=== PATIENT | female | born 1990 | race Caucasian/White ===

== ENCOUNTER 2018-07-12 16:53 | Outpatient (REF) | payer MEDICAID, SELFPAY ==
[2018-07-16 14:42] LABS: Chlamydia Result Negative; GC Result Negative; Specimen Description URINE
== END 2018-07-12 17:13 ==
LOC: LBN 16:53
PROVIDERS: PCP Nurse Practitioner Family; Visit Provider Nurse Practitioner Women's Health
DX: Z11.3 Encounter for screening for infections with a predominantly sexual mode of transmission (principal)
CPT/HCPCS: 87491; 87591

== ENCOUNTER 2020-11-16 11:54 | Outpatient (REF) | payer MEDICAID, SELFPAY ==
--- NOTE | 2020-11-16 11:10 | PAPFT_PTH ---
PATIENT: Sravanthi Alexander LOC: [facility] U#:[id number] AGE/SX: 30/F ROOM: RE11/16/[address]: Cass Guillaume : 1990 BED: DIS: 11/16/2020 SPEC #: [id number] RECD: 11/16/20 14:09 STATUS: MADAI RESkye #: [id number] DELGADO: 11/16/20 11:[address]: Cass Guillaume DEPT: [facility] Cytology RECD BY: Anum Knight Tissues: 1 - CX/ENDOCX FOR PAP SMEARS Procedures: PAP THIN PREP/UVM Screening Comments: [id number]
== END 2020-11-16 11:55 | disposition home or self-care (01) ==
LOC: LBN 11:54
PROVIDERS: Visit Provider Obstetrics & Gynecology Gynecology
DX: Z12.4 Encounter for screening for malignant neoplasm of cervix (principal)
CPT/HCPCS: 88142

== ENCOUNTER 2021-06-08 01:21 | Outpatient (CLI) | payer MEDICAID, SELFPAY ==
--- NOTE | 2021-06-08 06:45 | DI.RAD_ITS ---
Exam(s) RF HYSTEROSALPINGOGRAM EXAM: RF HYSTEROSALPINGOGRAM CLINICAL HISTORY: assess tubal patency,INFERTILITY, Z31.9 TECHNIQUE: 2D and realtime digital imaging was performed. CONTRAST MATERIAL: Refer to procedure report. COMPARISON: No exams were available for comparison FINDINGS: Fluoroscopy was provided for Dr. Guillaume during the performance of a hysterosalpingogram. Please r efer to the procedure report for complete details. Contrast is seen spilling into the peritoneal cav ity from both fallopian tubes. IMPRESSION: Unremarkable hysterosalpingogram. Ka,r=3.87 mGy
[2021-06-08] MEDS: Omnipaque 350 MG/ML 50 ML BTL 10 ML IJ (10:34)
--- NOTE | 2021-06-15 21:28 | W.PROCNOTE ---
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 She has used OPK and timed intercourse. Lab studies were normal: no evidence of decreased ovarian function. Procedure Description: After written and verbal consent was obtained the pt was placed in the dorsal supine position on the radiology table in [facility]. A pillow was placed beneath her coccyx to elevate her hips and a sterile speculum was inserted into the vagina. The cervix was cleansed with Betadine and through it a HSG catheter was inserted into the uterine cavity. A balloon attatched to the tip of the HSG catheter was inflated with Normal Saline and the speculum withdrawn. Under direct Fluoroscopy the contrast material was inserted into the uterus and there was documented spillage of the contrast material from both fallopian tubes. The uterine cavity and both fallopian tubes were noted to be normal with no filling defects. At the completion of the procedure the HSG catheter was deflated and the device removed. All other instruments were removed from the vagina. She tolerated the procedure well. She was assisted with getting off of the table and ambulating to the toilet. The normal findings were discussed with the pt. Will f/u with pt and her spouse after his semen analysis results are available.
== END 2021-06-08 01:41 ==
PROVIDERS: Visit Provider Obstetrics & Gynecology Gynecology
DX: Z31.49 Encounter for other procreative investigation and testing (principal)
CPT/HCPCS: 58340; 74740; Q9967

== ENCOUNTER 2022-08-30 15:39 | Outpatient (REF) | payer MEDICAID, SELFPAY ==
[2022-08-30 15:56] LABS: Anion Gap 8.7 mmol/L (3-11); BUN 9 mg/dL (7-18); CO2 25.3 mmol/L (21.0-32.0); CREATININE 0.9 mg/dL (0.55-1.02); Calcium 9.3 mg/dL (8.5-10.1); Calculated LDL 110 mg/dL (<100); Chloride 107 mmol/L (98-107); Cholesterol 168 mg/dL (<200); Glucose 85 mg/dL (74-106); HDL Cholesterol 52 mg/dL (40-60); Potassium 4.1 mmol/L (3.5-5.1); Sodium 141 mmol/L (136-145); TSH 1.01 uIU/mL (0.36-3.74); Triglyceride 34 mg/dL (<150)
[2022-08-30 16:13] LABS: FREE T4 0.84 ng/dL (0.76-1.46)
[2022-08-31 18:11] LABS: Thyroperoxidase Antibody <28 U/mL (<=60)
[2022-09-01 18:35] LABS: Thyrotropin Receptor Ab <1.10 IU/L
== END 2022-08-30 15:40 | disposition home or self-care (01) ==
LOC: NCHCN 15:39
PROVIDERS: Visit Provider Nurse Practitioner Family
DX: Z00.00 Encounter for general adult medical examination without abnormal findings (principal); Z13.220 Encounter for screening for lipoid disorders; E04.9 Nontoxic goiter, unspecified
CPT/HCPCS: 80048; 80061; 84235; 84439; 84443; 86376

== ENCOUNTER 2022-11-11 15:18 | Outpatient (REF) | payer MEDICAID, SELFPAY ==
[2022-11-12 13:24] LABS: Chlamydia Result Negative (Negative); GC Result Negative (Negative)
[2022-11-12 14:30] LABS: Bacterial Vaginosis (BV) Positive (Negative); Candida glabrata Negative (Negative); Candida species group Negative (Negative); Trichomonas vaginalis Negative (Negative)
== END 2022-11-11 15:19 | disposition home or self-care (01) ==
LOC: NCHCN 15:18
PROVIDERS: Visit Provider Family Medicine
DX: N76.0 Acute vaginitis (principal); Z11.3 Encounter for screening for infections with a predominantly sexual mode of transmission
CPT/HCPCS: 81513; 87481; 87491; 87591; 87661; 87480; 87510; 87660

== ENCOUNTER → 2023-11-03 01:02 | Outpatient (CLI) | payer SELFPAY ==
--- NOTE | 2023-11-03 | DI.US_ITS ---
Exam(s) MG MAMMO DIAGNOSTIC BI US BREAST LT LIMITED EXAM: MG MAMMO DIAGNOSTIC BI CLINICAL HISTORY: N64.4,N63.21 Left breast pain,Mass Upper outer quadrant. COMPARISON: US US BREAST LT LIMITED from 11/03/2023 TECHNIQUE: Craniocaudal and mediolateral oblique Full Field Digital Mammography views of both breast s with Computer Aided Diagnosis followed by Tomosynthesis and left breast ultrasound. FINDINGS: Mammography/Tomosynthesis: Masses/Architectural Distortion: Circumscribed nodule noted in the subareolar region of the left [address]. Microcalcifications: No suspicious pleomorphic-type are seen. Scattered bilateral benign calcificat ions. Skin Thickening/Nipple Retraction: None. Left breast US: Echotexture: Normal appearance of the glandular tissue. Shadowing: No suspicious foci. Cyst: Multiple small cysts. 9 x 5 x 11 millimeter cyst in the 12 o'clock position 2 cm from the nipp le. This corresponds to the mammographic abnormality. 9 x 4 x 8 millimeter cyst in the 2 o'clock po sition 4 cm from the nipple. 10 x 5 x 9 millimeters cyst in the 3 o'clock position, 1 cm from the ni pple. Solid lesions: None seen. Ductal dilation: None. IMPRESSION: 1. No evidence of malignancy is noted. 2. Unless there is more urgent need, follow-up screening mammography is recommended, as per [employer] guidelines. BI-RADS Category 2 - Benign Findings Breast Density - Category C - Heterogeneously dense Breast density category C or D implies that the patient has dense breast tissue. Dense breast tissue is very common and is not abnormal but dense breast tissue can make it harder to find cancer on a ma mmogram. Also, dense breast tissue may increase their breast cancer risk. This information about the result of the mammogram report was provided to the patient to raise their awareness. Use this report when you speak with the patient about their risks for breast cancer, which includes their family hist ory. At that time, you may recommend for more screening tests (Ultrasound or MRI) as they might be us eful based on their risk. A negative radiographic report should not delay biopsy if a dominant or clinically suspicious mass is present. Up to ten percent of cancers are not identified on mammography. A negative report may reinforce clinical impression. Adenosis and dense breasts may obscure an underlying neoplasm. False positive reports average 6 to 10%. Patient will receive a letter notifying them of these results.
== END ==
PROVIDERS: Visit Provider Advanced Practice Midwife
DX: Z12.31 Encounter for screening mammogram for malignant neoplasm of breast (principal); N63.21 Unspecified lump in the left breast, upper outer quadrant
CPT/HCPCS: 76642; 77062; 77066; G0279

== ENCOUNTER 2024-08-25 20:59 | Emergency (ER) | payer SELFPAY ==
[2024-08-25 21:03] VITALS: BP 145/95; PULSE 115; RESP 20; TEMP 37.1; O2SAT 99
[2024-08-25 21:06] VITALS: BP 145/95; PULSE 115; RESP 20; TEMP 37.1; O2SAT 99
--- NOTE | 2024-08-25 21:28 | ED.GENADUL_ITS ---
Discharge Plan Disposition Patient Disposition: Home Condition: Good Discharge Details Clinical Impression: Influenza A Primary Care Provider: None,None ED Provider: Anastacia Catherine Home Meds and New Rx's Prescriptions: No Action norethindrone-e.estradiol-iron [Roxie Fe 07/15 (28)] 1 mg-20 mcg (21)/75 mg (7) tablet 1 tab PO DAILY Patient Comments: TAKE ONE TABLET BY MOUTH EVERY DAY Discharge Instructions Instructions: Flu Additional Instructions: You are positive for Flu A. Please stay well hydrated, drinking plenty of fluids throughout the day. You may use ibuprofen 600 mg every 8 hours and tylenol 650 mg every 8 hours as needed for fever /chills or body aches. Get plenty of rest. Practice good handwashing and wear a mask in public if you are coughing to avoid spreading illness to others. Return to emergency care if you develop difficulty breathing, chest pains, worsening of cough or fever after initial improvement, or if you are very worried and need to be rechecked again immediately. HPI General Date/Time Provider Initiated Documentation: 08/25/24 21:18 . HPI Narrative: Sravanthi is a 34year old female who presents to the emergency department today for evaluation of viral symptoms. She reports symptoms started 5 days ago, has had intermittent fevers up to 102, headache, congestion, ear pressure, sore throat, cough, chest discomfort due to coughing since onset. Today started vomiting. Denies abdominal pain, denies any chest pain, shortness of breathing other than associated with not being able to breathe through her nose, abdominal pain, change in bowel or bladder function. She has had multiple ill contacts. Denies significant past medical history; denies history of immunocompromise, lung disease, heart disease, diabetes, or other chronic conditions. Physical exam reassuring. Sravanthi is alert and oriented, no acute distress. Moist mucous membranes. Clear fluids. Easy work of breathing, lung sounds clear bilaterally. Normal heart sounds. Abdomen is soft, nondistended, nonten jermaine to palpation. TMs pearly gregorio, translucent. History and presentation consistent with viral illness. No red flags c/w [place], dehydration, or electrolyte imbalance based on vomiting starting today and good fluid intake. No red flags concerning for pneumonia or other acute bacterial infection secondary to viral illness. I independently interpreted the following tests: Flu A+, COVID and RSV negative. While in the emergency department, Sravanthi received Zofran for nausea and ibuprofen for body aches/fever. Sravanthi is outside the window for antiviral therapy. Reviewed discharge instructions with patient, including symptomatic management and red flags indicating need for return to emergency care Related Data Home Medications ?Medication ?Instructions ?Recorded ?Confirmed norethindrone 1 mg-ethinyl 1 tab PO DAILY 08/25/24 08/25/24 estradiol 20 mcg (21)-iron 75 mg (7) tablet (Roxie Fe 07/15 (28)) Allergies Allergy/AdvReac Type Severity Reaction Status Date / Time diphenhydramine HCl (From AdvReac Mild SICK TO Unverified 08/25/24 21:05 Benadryl) STOMACH General Stated Complaint: RespSymp ALBERT: 3 Review of Systems Narrative: See HPI Exam Const General: cooperative, healthy appearing, comfortable, no acute distress, well developed and well groomed Nutritional Appearance: average body habitus and well nourished Orientation: alert and oriented x3 HENMT Head: normal to inspection Ears: hearing grossly normal bilaterally, external ears normal and TM's normal bilaterally General nose exam: external nose normal Mouth: oral mucosae normal, oropharynx normal and moist mucous membranes Neck Neck: normal visual inspection Resp Effort & Inspection: normal respiratory effort and able to speak in complete sentences Auscultation: clear to auscultation bilaterally Cardio Rate: regular rate Rhythm: regular rhythm GI Inspection: normal to inspection Palpation: soft, not firm, no guarding, not rigid and nontender Skin General skin exam: no rashes or lesions noted Trauma: no lacerations or abrasions Neuro General: patient alert, patient oriented x3 and tone normal Course Vital Signs Vital signs: Vital Signs Temperature 37.1 C 08/25/24 21:03 Pulse 115 H 08/25/24 21:03 Respiratory Rate 20 08/25/24 21:03 Blood Pressure 145/95 H 08/25/24 21:03 Pulse Oximetry 99 08/25/24 21:03 Temperature 37.1 C 08/25/24 21:06 Temperature Source Oral 08/25/24 21:06 Pulse 115 H 08/25/24 21:06 Respiratory Rate 20 08/25/24 21:06 Respiratory Effort Normal, Non-Labored 08/25/24 21:06 Respiratory Depth Normal 08/25/24 21:06 Blood Pressure 145/95 H 08/25/24 21:06 Pulse Oximetry 99 08/25/24 21:06 Oxygen Delivery Method Room Air 08/25/24 21:06 Oxygen Flow Rate 0 08/25/24 21:06 Medical Decision Making Quality:SDOH Health Related Social Needs: No Data to Display PFSH All Active Problems (Updated 08/25/24 @ 22:19 by Anastacia Jo) Influenza A (Acute) Nexplanon insertion (Acute) 11/2022. Medical History (Updated 08/25/24 @ 22:19 by Anastacia Jo) Irregular menstrual cycle Family History Mother No problems noted. Father No problems noted. Social History (Updated 12/16/22 @ 16:51 by Cass Guillaume MD) Smoking/Tobacco Use Status: Never Smoking risk assessment performed?: Yes Alcohol Intake: never Drug use: Never Substance use type: does not use Household members: other Details: [facility] Housing: apartment Number of Children: 1 Education Level: college Details: working towards [employer]. Do you feel safe at home: Yes Do you feel safe in your relationship?: Yes Female Reproductive History Menstrual control method: implanted History History 4 Para 1 Hx # Term Pregnancies Multiple births Hx # Pregnancies Ectopic pregnancies AB induced Hx Number of Living Children AB spontaneous
[2024-08-25] MEDS: Ondansetron O.D.T. 4 MG TABEF PO (21:37)
[2024-08-25] MEDS: Ibuprofen 600 MG TAB PO (21:37)
[2024-08-25 21:45] VITALS: BP 111/66; PULSE 98; RESP 18; O2SAT 98
[2024-08-25 22:13] LABS: COVID-19 PCR Negative (Negative); Influenza A PCR Positive (Negative); Influenza B PCR Negative (Negative); RSV PCR Negative (Negative); Source Nasopharynx
== END 2024-08-25 22:25 | disposition home or self-care (01) ==
PROVIDERS: Emergency Provider Nurse Practitioner Family
DX: J10.1 Influenza due to other identified influenza virus with other respiratory manifestations (principal); R11.0 Nausea
CPT/HCPCS: 87637; 99283

== ENCOUNTER 2024-09-01 11:36 | Emergency (ER) | payer SELFPAY ==
[2024-09-01 11:38] VITALS: PULSE 75; RESP 16; O2SAT 98
[2024-09-01 11:41] VITALS: PULSE 75; RESP 16; TEMP 36.8; O2SAT 98
--- NOTE | 2024-09-01 12:13 | ED.GENADUL_ITS ---
Discharge Plan Disposition Patient Disposition: Home Condition: Stable Discharge Details Clinical Impression: Sinusitis Primary Care Provider: None,None ED Provider: Donna Bustillos Home Meds and New Rx's Prescriptions: New amoxicillin-pot clavulanate 875-125 mg tablet 1 tab PO BID 7 Days Qty: 14 0RF No Action norethindrone-e.estradiol-iron [Roxie Fe 07/15 (28)] 1 mg-20 mcg (21)/75 mg (7) tablet 1 tab PO DAILY Patient Comments: TAKE ONE TABLET BY MOUTH EVERY DAY Discharge Instructions Instructions: Sinusitis, Adult ED Additional Instructions: You were seen in the emergency department today for evaluation of bilateral ear pain, sinus pressure, and stuffy nose after influenza A, concerning for a sinus infection. As you have had symptoms for 2 to 3 weeks it is reasonable to treat this with antibiotics. I have provided you with a prescription for Augmentin, please take all of this antibiotic until it is gone, even if you start to feel better. I have also provided you with a referral to establish with a primary care provider, and you need to call them to schedule an appointment for reevaluation. Thank you for allowing us to be part of your care. Discharge Data Discharge Date/Time-TO BE ENTERED AT DEPARTURE: 09/01/24 12:24 HPI General Mode of arrival: ambulatory . Date/Time Provider Initiated Documentation: 09/01/24 12:02 . Limitations to Documentation: no limitations . Information obtained by: patient and family . HPI Narrative: HPI: This is a 34-year-old female patient presenting for evaluation of bilateral ear pain and sinus pressure. The patient reports that she was sick with influenza a but has been sick for 2 to 3 weeks, with ongoing nasal congestion, thick green mucus, sinus pain, and a few days ago developed bilateral ear pain. She reports that this is exacerbated whenever she blows her nose, has been using [id number] Tylenol and ibuprofen for management of symptoms, states that she has not been running a measured fever but has felt warm and flushed for the last few days. She denies shortness of breath, cough, has been maintaining her hydration without nausea or vomiting. Exam: Gen: Awake and alert, in no apparent distress HEENT: Non-icteric sclera, no conjunctival injection, bilateral TMs are clear without bulging, purulence, or effusions. Posterior pharynx without erythema, exudate, or swelling. I do note copious green mucus in the bilateral naris Neck: Supple Lungs: No apparent respiratory distress, normal respiratory effort. Lung sounds clear and equal bilaterally without wheezes, rhonchi, rales CV: Appears well perfused, heart with regular rate and rhythm, strong distal pulses Abdomen: Non-distended MSK: Moves 4 extremities without apparent limitation in ROM Skin: Visualized skin without rashes, cyanosis. Neuro: Normal Gait, no obvious focal deficits or facial asymmetry. Speaks in full, clear sentences. Psych: Appropriate for situation. MDM: This is a 34-year-old female patient presenting for evaluation of sinus pressure and bilateral ear pain. Differential includes but is not limited to sinusitis, considered viral upper respiratory infection, no evidence on my exam for otitis media, mastoiditis, or pneumonia. The patient is maintaining her oral intake and I have a lower concern for dehydration, metabolic or electrolyte derangement, she is afebrile now and not hypoxic. No wheezing to suggest reactive airway disease exacerbation. ED Course: Eye exam is most concerning for sinusitis, given the extended duration of symptoms (2 to 3 weeks) that is reasonable to treat with antibiotics given her ongoing symptoms and subjective fevers. We will provide her with a course of Augmentin, and I referred her to establish with a primary care provider for reassessment. At this time, the patient has had a full medical evaluation and is safe for dis charge to home. They are hemodynamically stable, ambulatory, and tolerating PO. They are understanding of the follow-up plan and return precautions. They left our facility without incident. Donna Bustillos MD Related Data Home Medications ?Medication ?Instructions ?Recorded ?Confirmed norethindrone 1 mg-ethinyl 1 tab PO DAILY 08/25/24 09/01/24 estradiol 20 mcg (21)-iron 75 mg (7) tablet (Roxie Fe 07/15 (28)) amoxicillin 875 mg-potassium 1 tab PO BID 7 days #14 tabs 09/01/24 clavulanate 125 mg tablet Previous Rx's ?Medication ?Instructions ?Recorded amoxicillin 875 mg-potassium 1 tab PO BID 7 days #14 tabs 09/01/24 clavulanate 125 mg tablet Allergies Allergy/AdvReac Type Severity Reaction Status Date / Time diphenhydramine HCl (From AdvReac Mild SICK TO Unverified 09/01/24 11:42 Benadryl) STOMACH General Stated Complaint: EarProblem ALBERT: 4 Course Vital Signs Vital signs: Vital Signs Pulse 75 09/01/24 11:38 Respiratory Rate 16 09/01/24 11:38 Pulse Oximetry 98 09/01/24 11:38 Temperature 36.8 C 09/01/24 11:41 Temperature Source Oral 09/01/24 11:41 Pulse 75 09/01/24 11:41 Respiratory Rate 16 09/01/24 11:41 Pulse Oximetry 98 09/01/24 11:41 Oxygen Delivery Method Room Air 09/01/24 11:41 Oxygen Flow Rate 0 09/01/24 11:41 Pain Level 6 09/01/24 11:41 Medical Decision Making Quality:SDOH Health Related Social Needs: No Data to Display PFSH All Active Problems (Updated 09/01/24 @ 12:13 by Donna Bustillos MD) Sinusitis (Acute) Influenza A (Acute) Nexplanon insertion (Acute) 11/2022. Medical History (Updated 09/01/24 @ 12:13 by Donna Bustillos MD) Irregular menstrual cycle Family History Mother No problems noted. Father No problems noted. Social History (Updated 12/16/22 @ 16:51 by Cass Guillaume MD) Smoking/Tobacco Use Status: Never Smoking risk assessment performed?: Yes Alcohol Intake: never Drug use: Never Substance use type: does not use Household members: other Details: [facility] Housing: apartment Number of Children: 1 Education Level: college Details: working towards [employer]. Do you feel safe at home: Yes Do you feel safe in your relationship?: Yes Female Reproductive History Menstrual control method: implanted History History 4 Para 1 Hx # Term Pregnancies Multiple births Hx # Pregnancies Ectopic pregnancies AB induced Hx Number of Living Children AB spontaneous
[2024-09-01] MEDS: Amox. 875/Clav. 125, 2 TABS/BTL 1 TAB PO (12:24)
== END 2024-09-01 12:24 | disposition home or self-care (01) ==
PROVIDERS: Emergency Provider Emergency Medicine
DX: J32.9 Chronic sinusitis, unspecified (principal); H92.03 Otalgia, bilateral
CPT/HCPCS: 99283

== ENCOUNTER 2025-02-26 11:51 | Outpatient (REF) | payer MEDICAID, SELFPAY ==
--- NOTE | 2025-02-26 13:15 | PAPFT_PTH ---
PATIENT: Sravanthi Alexander LOC: [facility] U#:[id number] AGE/SX: 35/F ROOM: RE02/26/[address]: Gael Aguero DNP : 1990 BED: DIS: 02/26/2025 SPEC #: [id number] RECD: 02/27/25 12:56 STATUS: MADAI RESkye #: [id number] DELGADO: 02/26/25 13:[address]: Gael Edward DEPT: [facility] Cytology RECD BY: Mavis Ferreira Tissues: 1 - CX/ENDOCX FOR PAP SMEARS Procedures: PAP THIN PREP/UVM Screening HPV DNA PROBE Comments: [id number] (HPV 16 & 18/45)
== END 2025-02-26 11:52 | disposition home or self-care (01) ==
LOC: LBN 11:51
PROVIDERS: PCP Nurse Practitioner Family; Visit Provider Nurse Practitioner Family
DX: Z12.4 Encounter for screening for malignant neoplasm of cervix (principal)
CPT/HCPCS: 88142; 87624